=== PATIENT | female | born 1980 | race African-American/Black ===

== ENCOUNTER 2021-09-20 13:02 | Emergency (ER) | payer OTHER ==
[~2021-09-20] VITALS: Ht 162.6 cm; Wt 59.0 kg
--- NOTE | 2021-09-20 13:02 | NUR ---
ARRIVAL PRESENTED TO ED RM#2 VIA [employer] [facility]. PD CALLED FOR WELLFARE CHECK NEAR [facility]. CALLER REPORTED POSSIBLE SEIZURE LIKE ACTIVITY/ALTERED LOC. PD OFFICER PRESENT AT BEDSIDE. VS OBTAINED. POOR HISTORIAN/AGITATED. DR. PÉREZ PRESENT UPON ARRIVAL.
[2021-09-20 13:19] VITALS: BP 140/93
--- NOTE | 2021-09-20 13:24 | ER.PDOC ---
General Chief Complaint: Requesting Medical Care Stated Complaint: AMS Time seen by MD: 13:19 Source: police, EMS, EMS notes reviewed Exam Limitations: clinical condition History of Present Illness Initial Comments Patient brought in by police because she was found acting confused. Patient does not have any complaints. Character of AMS: confused Usually: orientedx3 Allergies: Coded Allergies: No Known Allergies (Unverified , 09/20/21) Past Medical History Medical History: other (seizure) Family History Significant Family History: no pertinent family hx Social History Smoking: non-smoker Alcohol Use: none Drug Use: none Review of Systems Constitutional: no symptoms reported Respiratory: no symptoms reported Cardiovascular: no symptoms reported Gastrointestinal: no symptoms reported Genitourinary: no symptoms reported Psychiatric/Neurological: see HPI All Other Systems: Reviewed and Negative Physical Exam General Appearance: alert, no distress HEENT: no apparent trauma, EOM's intact, no nystagmus, PERRL, ENT inspection nml, pharynx nml, airway intact, oral exam nml Neuro/Psych: disoriented to person, disoriented to place, disoriented to time Cranial Nerves: nml as tested Peripheral Exam: motor nml, sensation nml, reflexes nml Neck: supple, non-tender, no carotid bruit Respiratory: no resp distress, breath sounds nml CVS: reg rate & rhythm, heart sounds nml Abdomen: non-tender, no organomegaly, no distention Skin: color nml, no rash, warm/dry Extremities: non-tender, nml ROM, no pedal edema Results/Orders Results/Orders Vital Signs Date Time Temp Pulse Resp B/P (MAP) Pulse Ox O2 Delivery O2 Flow Rate FiO2 09/20/21 13:19 97.7 112 19 140/93 (109) 97 Room Air* 0 21 09/20/21 13:19 97.7 112 19 09/20/21 13:19 97.7 112 19 97 Progress Progress Patient refused labs, EKG and imaging studies. I told the courtney who brought her that she needed to be committed for us to force her in drawing blood. The courtney talked to his boss and they decided to take her back to where they brought her from. She was given a form to sign that she is leaving AGAINST MEDICAL ADVICE and she refused. ER DEPART Departure Time of Disposition: 14:09 Disposition: 07 LEFT AGAINST MEDICAL ADVICE Impression: Primary Impression: Confusion Condition: Against Medical Advice Duration or Time Spent with Pa: 10 min DEMETRIA PÉREZ MD Sep 20, 2021 13:24
== END 2021-09-20 13:40 | disposition left against medical advice (07) ==
LOC: ER 13:02
DX: R41.0 Disorientation, unspecified (principal)
CPT/HCPCS: 99284